=== PATIENT | male | born 1945 | race Caucasian/White ===

== ENCOUNTER 2020-03-13 13:54 | Inpatient (IN) | payer MEDICARE, OTHER, SELFPAY ==
[2020-03-13] VITALS (12 sets, daily range): BP systolic 107–152; BP diastolic 49–90; PULSE 65–91; RESP 12–22; TEMP 35.4–36.8; O2SAT 91–100; BMI 12.9; BMI 13.7
--- NOTE | 2020-03-13 14:13 | XR_ITS ---
PROCEDURE: XR CHEST 2V CLINICAL HISTORY: dizziness COMPARISON: No exams were available for comparison FINDINGS: The cardiomediastinal silhouette and pulmonary vascularity are within normal limits. Changes of COPD. Calcified granuloma right upper lobe. No lobar consolidation or collapse. There is kyphosis of the thoracic spine with mild wedging of L1 T12-T10 which is age indeterminate. There is evidence of old granulomatous disease. IMPRESSION: COPD with multiple wedge compression changes in the thoracic spine Dictated by: Leon Gutiérrez MD 03/13/2020 15:04 Leon Gutiérrez MD in [place] 03/13/2020 15:04
--- NOTE | 2020-03-13 14:28 | HMH.EDDIZZ ---
ED Disposition Clinical Impression: Hyponatremia, Acute UTI Failure to thrive Qualifiers: Failure to thrive age range: in adult Qualified Code(s): R62.7 - Adult failure to thrive Syncope Qualifiers: Syncope type: unspecified Qualified Code(s): R55 - Syncope and collapse Disposition: Admitted As Inpatient Condition on Discharge: [facility] Critical Care Critical Care Time: No Attestation: On 03/13/20, the high probability of a clinically significant, sudden or life threatening deterioration of the following system(s) required my full and direct attention, intervention and personal management. The time I documented below is in addition to time spent performing reported procedures but includes the following listed in this critical care notation. Medical Decision Making - Medical Records Medical records reviewed: Yes: I reviewed the patient's medical records. - Patric Inquiry Pt receiving controlled substance: No Vital Signs: 03/13/20 13:56 03/13/20 15:26 03/13/20 15:51 Temperature 96.0 F L Temperature Source Rectal Pulse Rate [Left Radial] 69 Respiratory Rate 20 Blood Pressure [Orthostatic Lying Left Arm] 152/62 H Blood Pressure [Orthostatic Sitting Left Arm] 133/49 L Blood Pressure [Orthostatic Standing Left Arm] 140/88 Blood Pressure [Right Arm] 107/56 L Blood Pressure Mean [Right Arm] 73 Blood Pressure Source [Right Arm] Automatic Cuff Blood Pressure Position [Right Arm] Sitting 02 Sat by Pulse Oximetry 100 Oxygen Delivery Method Room Air - Lab Data Lab Results 03/13/20 14:51: WBC 5.9, RBC 4.00 L, Hgb 13.0 L, Hct 37.5 L, MCV 93.5, MCH 32.4 H, MCHC 34.6, RDW 14.5, Plt Count 165, MPV 7.3 L, Neut % (Auto) 86.0 H, Lymph % (Auto) 9.0 L, [place] % (Auto) 3.9, Eos % (Auto) 0.6, Baso % (Auto) 0.5, Neut # (Auto) 5.1, Lymph # (Auto) 0.5 L, [place] # (Auto) 0.2, Eos # (Auto) 0.0, Baso # (Auto) 0.0, Total Counted 100, Neutrophils % (Manual) 93 H, Lymphocytes % (Manual) 4 L, Monocytes % (Manual) 3, Platelet Estimate Normal, RBC Morphology Normal 03/13/20 14:51: Sodium 130 L, Potassium 3.2 L, Chloride 89 L, Carbon Dioxide 32 H, Anion Gap 12.2, BUN 13, Creatinine 0.70, Estimated Creat Clear 37, Estimated GFR 110, Est GFR ( Amer) 133, Glucose 118 H, Calcium 9.1, Total Bilirubin 1.8 H, AST 81 H, ALT 22, Alkaline Phosphatase 156 H, Total Protein 7.6, Albumin 4.0, Globulin 3.6 H, Albumin/Globulin Ratio 1.1 03/13/20 14:51: Troponin I < 0.01 03/13/20 16:01: Urine Color [place], Urine Appearance Clear, Urine pH 6.0, Ur Specific [place] 1.025, Urine Protein Trace, Urine Glucose (UA) Negative, Urine Ketones Trace, Urine Blood Negative, Urine Nitrate Positive, Urine Bilirubin Negative, Urine Urobilinogen 1.0, Ur Leukocyte Esterase Negative, Urine RBC 3-5, Urine WBC 3-5, Ur Squamous Epith Cells 3-5, Ur Renal Epithelial Cell 5-10, Urine Bacteria Trace, Hyaline Casts Occasional, Urine Yeast Occasional, Urine Sperm 1+ Result diagrams: 03/13/20 14:51 03/13/20 14:51 Orders (Tests/Meds): ED MEDICATIONS Generic Name Dose Route Start Last Admin Trade Name Freq PRN Reason Stop Dose Admin Acetaminophen 650 mg 03/13/20 16:28 Acetaminophen 325mg Tab PO 04/12/20 16:27 Q4HP PRN As Needed for Fever or Pain Docusate Sodium 100 mg 03/14/20 09:00 Docusate Sodium 100 Mg Capsule PO 04/13/20 08:59 DAILY DEBORA Sodium Chloride 1,000 mls @ 999 mls/hr 03/13/20 16:15 03/13/20 16:06 Sod Chlor 0.9% 1000ml Bag IV 03/13/20 17:15 999 mls/hr .Q1H1M DEBORA Administration Ceftriaxone Sodium 1 gm/ 50 mls @ 100 mls/hr 03/13/20 16:26 Sodium Chloride IV 03/13/20 16:55 ONCE STA Protocol Ondansetron HCl 4 mg 03/13/20 16:28 Ondansetron 4mg/2ml Vial IV 04/12/20 16:27 Q8HP PRN Nausea Pantoprazole Sodium 40 mg 03/14/20 09:00 Pantoprazole 40mg Tablet PO 04/13/20 08:59 DAILY DEBORA Discontinued Medications Generic Name Dose Route Start Last Admin Trade Name F
--- NOTE | 2020-03-13 14:57 | ECG_ITS ---
APPROVED REPORT Exam: Resting ECG HR:71 bpm ECG Measurements Heart Rate 71 AXES OH 182 P 87 QRSd 100 QRS 88 QT 440 T 96 QTc 478 Conclusion Normal sinus rhythm Late r wave progression Abnormal ECG Electronically signed by : Rad Thompson, 03/16/2020 20:36:33
--- NOTE | 2020-03-13 14:57 | ECG_ITS ---
APPROVED REPORT Exam: Resting ECG HR:71 bpm ECG Measurements Heart Rate 71 AXES [place] 182 P 87 QRSd 100 QRS 88 QT 440 T 96 QTc 478 Conclusion Normal sinus rhythm Septal infarct, age undetermined Abnormal ECG Electronically signed by : Rad Thompson, 03/13/2020 21:33:41
[2020-03-13 14:59] LABS: Basophils % 0.5 % (0.1-2.0); Eosinophils % 0.6 % (0.1-12.0); Hematocrit 37.5 % (42.0-52.0); Lymphocytes # 0.5 K/mm3 (0.7-4.5); Mean Corpuscular HGB Conc 34.6 g/dL (31.8-35.4); Mean Corpuscular Hemoglobin 32.4 pg (27.0-31.2); Mean Corpuscular Volume 93.5 fl (80-94); Mean Platelet Volume 7.3 fl (7.4-10.4); Monocytes # 0.2 K/mm3 (0.1-1.0); Monocytes % 3.9 % (1.7-9.3); Neutrophils # 5.1 K/mm3 (1.8-7.8); Platelet Count 165 K/mm3 (142-424); Red Cell Distribution Width 14.5 % (11.5-17.5); White Blood Count 5.9 K/mm3 (4.8-10.8)
[2020-03-13 15:01] LABS: MANUAL DIFFERENTIAL MANUAL DIFFERENTIAL (MANUAL DIFF)
[2020-03-13 15:13] LABS: Alanine Aminotransferase 22 U/L (12-78); Albumin/Globulin Ratio 1.1 (1.1-1.8); Alkaline Phosphatase 156 U/L (38-126); Aspartate Amino Transferase 81 U/L (17-59); Bilirubin,Total 1.8 mg/dl (0.2-1.3); Blood Urea Nitrogen 13 mg/dl (9-20); Calcium 9.1 mg/dl (8.4-10.2); Carbon Dioxide 32 mmol/L (22.0-30.0); Chloride 89 mmol/L (98-107); Creatinine Clearance Estimated 37 mL/min (50-200); Estimated Glomerular Filt Rate 110 ml/min (>60); GFR (African American) 133 ML/MIN (>60); Globulin 3.6 g/dL (1.3-3.2); Glucose 118 mg/dl (74-100); Total Protein,Serum 7.6 g/dl (6.3-8.2)
--- NOTE | 2020-03-13 15:18 | CT_ITS ---
PROCEDURE: CT HEAD/BRAIN WO CON CLINICAL INDICATION: syncope Syncope and dizziness COMPARISON: No exams were available for comparison TECHNIQUE: Axial images obtained. All CT scans at the facility use one or more dose reduction, viz: automated exposure control, ma/kV adjustment per patient size (including targeted exams where dose is matched to indication, i.e. head), or iterative reconstruction technique. FINDINGS: No midline shift, mass effect, intracranial hemorrhage, hydrocephalus, or extra-axial fluid collection is evident. There is generalized atrophy with hypoattenuation of the periventricular white matter consistent with microangiopathic changes. There is a small area of decreased attenuation in the left subinsular region measuring approximately 7 mm. This is nonspecific and may represent a small area lacunar infarction age indeterminate. The calvarium has an unremarkable appearance. No mastoid effusion. There is mild mucosal thickening of the left maxillary and sphenoid sinus. And sphenoid sinus on the left as well as the ethmoid sinuses. IMPRESSION: 1. Small area of decreased attenuation in the subinsular region on the left which could reflect a small lacunar infarction age indeterminate. 2. Mild sinus disease. Dictated by: Leon Gutiérrez MD 03/13/2020 16:01 Leon Gutiérrez MD in [place] 03/13/2020 16:01
[2020-03-13 15:20] LABS: Lymphocytes % 4 % (10-50); Monocytes % 3 % (2-9); Neutrophils % 93 % (42-76); Platelet Estimate Normal; RBC Morphology Normal; Total Cells Counted 100
[2020-03-13 15:23] LABS: Anion Gap 12.2 mEq/L (5-15); Potassium 3.2 mmoL/L (3.5-5.1); Sodium 130 mmol/L (136-145)
[2020-03-13 16:04] LABS: Troponin I < 0.01 ng/ml (0.00-0.034)
[2020-03-13 16:09] LABS: Microscopic, Urine URINE MICROSCOPIC (MICROSCOPIC)
[2020-03-13 16:10] LABS: Appearance,Urine CLEAR (Clear); Blood, Urine Negative (Negative); Color,Urine ORANGE (Yellow); Glucose,Urine (UA) Negative (Negative); Ketones,Urine TRACE (Negative); Leukocyte Esterase,Urine Negative (Negative); Nitrate,Urine POSITIVE (Negative); Protein,Urine TRACE (Negative); Specific Gravity, Urine 1.025 (1.005-1.030)
[2020-03-13 16:21] LABS: Bilirubin,Urine Negative (Negative)
[2020-03-13 16:22] LABS: Bacteria,Urine Trace /lpf; Hyaline Casts,Urine Occasional #/lpf (0); Sperm,Urine 1+ /lpf; Yeast,Urine Occasional /lpf
--- NOTE | 2020-03-13 16:30 | CT_ITS ---
PROCEDURE: CT ABDOMEN PELVIS W CON CLINICAL INDICATION: elevated bili and AST Elevated bilirubin COMPARISON: No exams were available for comparison TECHNIQUE: IV Contrast: 75ML Isovue 370 Oral Contrast None Axial images obtained with sagittal and coronal reformats. All CT scans at the facility use one or more dose reduction, viz: automated exposure control, ma/kV adjustment per patient size (including targeted exams where dose is matched to indication, i.e. head), or iterative reconstruction technique. FINDINGS: LOWER THORAX: No acute finding ABDOMEN & PELVIS: The liver, spleen, adrenal glands, have an unremarkable appearance. There is pancreatic atrophy. No renal or ureteral calculi. Hyperdensity noted in the posterior aspect of the gallbladder may be related to small layering stones and/or sludge. No intestinal obstruction or free air. The appendix is not clearly delineated. Multiple unopacified bowel loops in the abdomen or pelvis which could obscure or mimic pathology. If symptoms persist, consider repeat exam with IV and oral contrast.. Probable diverticulosis of the sigmoid colon but difficult to confirm secondary to the unopacified bowel and patient's paucity of peritoneal fat. No obvious diverticulitis. There is heavy atherosclerotic calcification of the aorta and iliac vessels and proximal left renal artery. Degenerative changes are present in the lumbar spine with wedging superiorly L4 and wedging inferiorly of L1 which appear old. IMPRESSION: 1. Layering posterior hyperdensity within the gallbladder may be due to small stones and/or sludge. 2. Multiple unopacified bowel loops in the abdomen or pelvis which could obscure or mimic pathology. If symptoms persist, consider repeat exam with IV and oral contrast.. Suspected diverticulosis without diverticulitis Dictated by: Leon Gutiérrez MD 03/14/2020 06:10 Loen Gutiérrez MD in [place] 03/14/2020 06:10
--- NOTE | 2020-03-13 16:34 | PC.NURSE ---
Per EMS pt lives at home by himself at this time. His is in a hospital in [facility] ([facility]) for the last 3 months.
[2020-03-13 16:54] LABS: Coronavirus 19 IgG Antibody Negative (Negative); Coronavirus 19 IgM Antibody Negative (Negative)
--- NOTE | 2020-03-13 17:40 | PC.NURSE ---
patent is very hard of hearing. unable to obtain some of admission history
--- NOTE | 2020-03-13 18:11 | PC.NURSE ---
patient is a new admit from the [facility]. VOICES NO PAIN. VERY HARD OF HEARING. WISHES TO BE DNR- PAPER SIGNED AND BRACELET APPLIED. SCATTERED BRUISING NOTED TO PATIENT BILAT ARMS. PULSES 2+ AND NO EDEMA. NO DISTRESS NOTED
--- NOTE | 2020-03-13 18:15 | HMH.HP ---
*Admission Date: 03/13/20 *Chief complaint: syncope episode *History of present illness: This is a 74-year-old male with no significant past medical history who presents to the emergency department for an episode of syncope at the grocery store today. Patient was giving the money to the otc clerk when he fell into the plastic shield. Patient is hard of hearing so report is primarily from EMS and the grocery store where he shops. They state he is in there frequently and they have noticed a general decline over the last several years. Patient does not go to the doctor and takes no medications regularly. Fingerstick was in the 120s. Patient denies any associated chest pain, shortness of breath or recent illnesses. He did fill a narcotic medication on February 062019. He states that he just got lightheaded earlier today. Asymptomatic currently. No pain. Above note per emergency department Significant electrolyte disturbances, significant weakness noted in the ER, admitted for social work, PT/OT evaluation and IV hydration. [facility] History I have reviewed the patient's past medical history: Yes Medical History: Denies:: Cancer, Diabetes Mellitus Type 1, Diabetes Mellitus Type 2, Internal Pacemaker, MRSA *Have you ever received a pneumonia vaccine?: No *Have you received a flu vaccine this season?: Yes Other Surgeries: No: Pacemaker Amputation: No Fractures: No - *Social History Last grade of school completed: GED Smoking Status: Current every day smoker Tobacco Type: cigarettes # Packs/Day (cigarettes): 1 Alcohol Intake: never *Occupational Status:: retired Housing: house Household Members: spouse *Travel in the last 8 weeks: None Family Hx:: Unable to obtain Review of Systems - Review of Systems Review of systems:: pertinent systems reviewed and negative unless documented below Patient feels fine except I am weak very hard of hearing Meds Home Medications Medication Instructions Recorded Confirmed Type Naproxen Sodium [Aleve 220mg Cap] 220 mg PO BID 03/13/20 03/13/20 History Allergies Allergy/AdvReac Type Severity Reaction Status Date / Time No Known Allergies Allergy Verified 03/13/20 14:13 Exam Vital signs and Labs for Last 24 Hours: Temp Pulse Resp BP Pulse Ox 98.1 F 65 18 133/62 100 03/13/20 17:14 03/13/20 17:14 03/13/20 17:14 03/13/20 17:14 03/13/20 16:30 Laboratory Results - last 24 hr 03/13/20 14:51: WBC 5.9, RBC 4.00 L, Hgb 13.0 L, Hct 37.5 L, MCV 93.5, MCH 32.4 H, MCHC 34.6, RDW 14.5, Plt Count 165, MPV 7.3 L, Neut % (Auto) 86.0 H, Lymph % (Auto) 9.0 L, [place] % (Auto) 3.9, Eos % (Auto) 0.6, Baso % (Auto) 0.5, Neut # (Auto) 5.1, Lymph # (Auto) 0.5 L, [place] # (Auto) 0.2, Eos # (Auto) 0.0, Baso # (Auto) 0.0, Total Counted 100, Neutrophils % (Manual) 93 H, Lymphocytes % (Manual) 4 L, Monocytes % (Manual) 3, Platelet Estimate Normal, RBC Morphology Normal 03/13/20 14:51: Sodium 130 L, Potassium 3.2 L, Chloride 89 L, Carbon Dioxide 32 H, Anion Gap 12.2, BUN 13, Creatinine 0.70, Estimated Creat Clear 37, Estimated GFR 110, Est GFR ( Amer) 133, Glucose 118 H, Calcium 9.1, Total Bilirubin 1.8 H, AST 81 H, ALT 22, Alkaline Phosphatase 156 H, Total Protein 7.6, Albumin 4.0, Globulin 3.6 H, Albumin/Globulin Ratio 1.1 03/13/20 14:51: Troponin I < 0.01 03/13/20 14:51: SARS-CoV-2 IgG Ab (Rapid) Negative, SARS-CoV-2 IgM Ab (Rapid) Negative 03/13/20 16:01: Urine Color [place], Urine Appearance Clear, Urine pH 6.0, Ur Specific [place] 1.025, Urine Protein Trace, Urine Glucose (UA) Negative, Urine Ketones Trace, Urine Blood Negative, Urine Nitrate Positive, Urine Bilirubin Negative, Urine Urobilinogen 1.0, Ur Leukocyte Esterase Negative, Urine RBC 3-5, Urine WBC 3-5, Ur Squamous Epith Cells 3-5, Ur Renal Epithelial Cell 5-10, Urine Bacteria Trace, Hyaline Casts Occasional, Urine Yeast Occasional, Urine Sperm 1+ I & O for Last 24 hours: Intake & Output 03/11/20 03/12/20 03/13/20 03/14/20 11:59
[2020-03-13 18:37] LABS: Troponin I 0.01 ng/ml (0.00-0.034)
[2020-03-13 19:03] LABS: Barbiturates Screen,Urine Negative ng/ml (<200)
[2020-03-13 19:04] LABS: Amphetamine/Metha Screen,Urine Negative ng/ml (<1000); Benzodiazepines Screen,Urine Negative ng/ml (<200)
[2020-03-13 19:05] LABS: Cannabinoid Screen,Urine Negative ng/ml (<50)
[2020-03-13 19:06] LABS: Cocaine Screen,Urine Negative ng/ml (<300); Methadone Screen,Urine Negative ng/ml (<300)
[2020-03-13 19:07] LABS: Opiate Screen,Urine Negative ng/ml (<300)
[2020-03-13 19:08] LABS: Phencyclidine Screen,Urine Negative ng/ml (<25)
--- NOTE | 2020-03-13 21:58 | PC.NURSE ---
2100 COURTESY ROUND PT ASLEEP AT THIS TIME . URINAL AND TRASH EMPTIED. NO OTHER NEEDS AT THIS TIME.
[2020-03-13 22:02] LABS: Troponin I 0.21 ng/ml (0.00-0.034)
[2020-03-14] VITALS (7 sets, daily range): BP systolic 103–140; BP diastolic 46–67; PULSE 68–90; RESP 14–18; TEMP 36.3–36.9; O2SAT 94–99; BMI 13.3; BMI 13.4
--- NOTE | 2020-03-14 04:13 | PC.NURSE ---
PT. HAS NOT C/O PAIN, N/V/D, SOA OR DIZZINESS. PT. DENIES COUGH; DIMINISHED LUNG SOUNDS T/O BILAT. PT. CURRENTLY RESTING IN BED WITH EYES CLOSED.
[2020-03-14 06:58] LABS: Basophils % 1.1 % (0.1-2.0); Eosinophils % 0.7 % (0.1-12.0); Hematocrit 30.1 % (42.0-52.0); Lymphocytes # 0.4 K/mm3 (0.7-4.5); Lymphocytes % 12.7 % (10-50); Mean Corpuscular HGB Conc 35.2 g/dL (31.8-35.4); Mean Corpuscular Hemoglobin 32.8 pg (27.0-31.2); Mean Corpuscular Volume 93.1 fl (80-94); Mean Platelet Volume 8.1 fl (7.4-10.4); Monocytes # 0.2 K/mm3 (0.1-1.0); Monocytes % 5.9 % (1.7-9.3); Neutrophils # 2.7 K/mm3 (1.8-7.8); Neutrophils % 79.6 % (37.0-80.0); Platelet Count 125 K/mm3 (142-424); Red Blood Count 3.23 M/mm3 (4.60-6.20); Red Cell Distribution Width 14.5 % (11.5-17.5); White Blood Count 3.4 K/mm3 (4.8-10.8)
--- NOTE | 2020-03-14 07:02 | HMH.ACPN2 ---
Internal Medicine - PN: Subj *Date: 03/14/20 *Time: 13:05 Interval history: Patient did well overnight. Denies any chest pain, shortness of breath, nausea, vomiting. Overall states he is feeling better. Reports that he was feeling dizzy at home and that is why he came to the emergency room. Is remained afebrile and hemodynamically stable. Of note, his serial troponins showed an elevation on the third sample. EKG remained stable with no ST abnormalities. Patient asymptomatic. Speech somewhat difficult to hear or understand. On further questioning, he states that he has had worsening ability to speak clearly over the past several months as a noted right sided neck mass has appeared. Extensive smoking history with greater than [id number] history. Exam Vital signs and Labs for Last 24 Hours: Temp Pulse Resp BP Pulse Ox 97.4 F L 72 14 136/67 98 03/14/20 05:26 03/14/20 05:26 03/14/20 05:26 03/14/20 05:26 03/14/20 05:26 Laboratory Results - last 24 hr 03/13/20 14:51: WBC 5.9, RBC 4.00 L, Hgb 13.0 L, Hct 37.5 L, MCV 93.5, MCH 32.4 H, MCHC 34.6, RDW 14.5, Plt Count 165, MPV 7.3 L, Neut % (Auto) 86.0 H, Lymph % (Auto) 9.0 L, [place] % (Auto) 3.9, Eos % (Auto) 0.6, Baso % (Auto) 0.5, Neut # (Auto) 5.1, Lymph # (Auto) 0.5 L, [place] # (Auto) 0.2, Eos # (Auto) 0.0, Baso # (Auto) 0.0, Total Counted 100, Neutrophils % (Manual) 93 H, Lymphocytes % (Manual) 4 L, Monocytes % (Manual) 3, Platelet Estimate Normal, RBC Morphology Normal 03/13/20 14:51: Sodium 130 L, Potassium 3.2 L, Chloride 89 L, Carbon Dioxide 32 H, Anion Gap 12.2, BUN 13, Creatinine 0.70, Estimated Creat Clear 37, Estimated GFR 110, Est GFR ( Amer) 133, Glucose 118 H, Calcium 9.1, Total Bilirubin 1.8 H, AST 81 H, ALT 22, Alkaline Phosphatase 156 H, Total Protein 7.6, Albumin 4.0, Globulin 3.6 H, Albumin/Globulin Ratio 1.1 03/13/20 14:51: Troponin I < 0.01 03/13/20 14:51: SARS-CoV-2 IgG Ab (Rapid) Negative, SARS-CoV-2 IgM Ab (Rapid) Negative 03/13/20 16:01: Urine Color [place], Urine Appearance Clear, Urine pH 6.0, Ur Specific [place] 1.025, Urine Protein Trace, Urine Glucose (UA) Negative, Urine Ketones Trace, Urine Blood Negative, Urine Nitrate Positive, Urine Bilirubin Negative, Urine Urobilinogen 1.0, Ur Leukocyte Esterase Negative, Urine RBC 3-5, Urine WBC 3-5, Ur Squamous Epith Cells 3-5, Ur Renal Epithelial Cell 5-10, Urine Bacteria Trace, Hyaline Casts Occasional, Urine Yeast Occasional, Urine Sperm 1+ 03/13/20 16:01: Urine Opiates Screen Negative, Urine Methadone Screen Negative, Ur Barbituates Screen Negative, Ur Phencyclidine Scrn Negative, Ur Amphetamines Screen Negative, U Benzodiazepines Scrn Negative, Urine Cocaine Screen Negative, U Marijuana (THC) Screen Negative 03/13/20 18:05: Troponin I 0.01 03/13/20 21:35: Troponin I 0.21 H I & O for Last 24 hours: Intake & Output 03/11/20 03/12/20 03/13/20 03/14/20 23:59 23:59 23:59 23:59 Intake Total 1000 / 1240 240 / 240 Output Total 200 / 200 200 / 200 Balance 800 / 1040 40 / 40 Weight 38.697 kg 37.677 kg - Constitutional cachectic, chronically ill appearing, cooperative Comments: Appears older than stated age - *Routine HEENT Exam Head: Present: other (Bitemporal wasting) Eye: Present: EOMI, PERRL ENT: Present: mucous membranes moist Comments: Right side of tongue enlarged, speech garbled - *Routine Neck Exam Present: supple, lymphadenopathy, trachea midline Comments: mass in right submandibular region, non-tender - *Routine Respiratory Exam Present: CTA bilaterally - *Routine Cardiovascular Exam Present: RRR - *Routine Abdominal Exam Present: soft, normoactive bowel sounds. Absent: tenderness Comments: scaphoid - *Routine Extremities Exam Absent: cyanosis, clubbing, edema Comments: sarcopenia - *Routine Skin Exam Present: warm. Absent: rash - *Routine Neurological Exam Present: alert, oriented X3 Assessment and Plan (1) Acute UTI Status: Acute
[2020-03-14 07:04] LABS: Chloride 96 mmol/L (98-107); Sodium 132 mmol/L (136-145)
[2020-03-14 07:06] LABS: Alanine Aminotransferase 11 U/L (12-78); Aspartate Amino Transferase 49 U/L (17-59); Blood Urea Nitrogen 9 mg/dl (9-20); Creatinine Clearance Estimated 35 mL/min (50-200); Estimated Glomerular Filt Rate 132 ml/min (>60); GFR (African American) 159 ML/MIN (>60)
[2020-03-14 07:07] LABS: Albumin Level 3.1 g/dl (3.5-5.0); Albumin/Globulin Ratio 1.1 (1.1-1.8); Alkaline Phosphatase 66 U/L (38-126); Calcium 8.3 mg/dl (8.4-10.2); Carbon Dioxide 31 mmol/L (22.0-30.0); Globulin 2.9 g/dL (1.3-3.2); Glucose 51 mg/dl (74-100); Magnesium 1.6 mg/dl (1.6-2.3); Phosphorous 2.9 mg/dl (2.5-4.5)
--- NOTE | 2020-03-14 07:24 | P.CONPHA_ITS ---
[facility] Pharmacy VTE Monitoring - Patient Demographics Admission date: 03/13/20 Report Date: 03/14/20 Time: 07:24 Allergies/Adverse Reactions: Patient Allergies No Known Allergies Allergy (Verified 03/13/20 14:13) Height: 1.68 m Weight: 37.677 kg Patient Problems: Current Active Problems Failure to thrive (Acute) Hyponatremia (Acute) Syncope (Acute) Acute UTI (Acute) - VTE Risk Labs: VTE Related Lab Results Hgb 13.0 g/dL (14.1-18.0) L 03/13/20 14:51 Hct 30.1 % (42.0-52.0) L 03/14/20 06:49 Plt Count 125 K/mm3 (142-424) L 03/14/20 06:49 BUN 9 mg/dl (9-20) D 03/14/20 06:49 Creatinine 0.60 mg/dl (0.66-1.25) L 03/14/20 06:49 Estimated Creat Clear 35 mL/min (50-200) 03/14/20 06:49 Was VTE Risk Assessment Performed: Yes VTE Score: 1 VTE Risk Level: Very Low Risk - Prophylaxis VTE Prophylaxis Ordered?: Yes Types of VTE Prophylaxis: TEDS Knee High Location of Applied Device: Bilateral Lower Extremeties
[2020-03-14 08:37] LABS: Hemoglobin 10.6 g/dL (14.1-18.0)
--- NOTE | 2020-03-14 09:06 | CT_ITS ---
PROCEDURE: CT SOFT TISSUE NECK WO/W CON CLINICAL HISTORY: mass in right neck COMPARISON: No exams were available for comparison TECHNIQUE: Oral Contrast: None IV Contrast: 75 mL Optiray 370 Axial images obtained with sagittal and coronal reformats. All CT scans at the facility use one or more dose reduction, viz: automated exposure control, ma/kV adjustment per patient size (including targeted exams where dose is matched to indication, i.e. head), or iterative reconstruction technique. FINDINGS: There is mild diffuse subcutaneous edema throughout the neck on both sides. Motion artifact obscures fine detail. Patient's lack of body fat also limits the exam. Lung this along with motion artifact greatly limits the study. There is mild diffuse increased density which has an infiltrative appearance in the right parapharyngeal region. The right submandibular gland is not well-defined. The uvula is somewhat deviated toward the right. The epiglottis has an unremarkable appearance. The no dominant adenopathy is identified. No abnormal fluid collections. Asymmetric increased density is present along the left side of the tongue. Correlation with physical exam is needed. A BB is placed at the area of palpable concern. No discrete nodule is evident at this region. There is diffuse subcutaneous swelling which is greater on the right side of the neck. No abscess is evident at this area. There is diffuse atheromatous calcification involving the carotid arteries. There is high-grade stenosis of the ostium of the right internal carotid artery. 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 IMPRESSION: Study is very limited secondary to patient's lack of body fat and motion artifact on the post enhanced images. There is mild diffuse soft tissue swelling of the neck which is greater on the right and may be related to cellulitis. The normal fat plane in this area extending to the pterygoid region. An infiltrative mass is a consideration. Please correlate with physical exam. There is also increased soft tissue density along the base of the tongue on the left which needs correlation with physical exam. Dictated by: Leon Gutiérrez MD 03/14/2020 14:35 Leon Gutiérrez MD in [place] 03/14/2020 14:35
--- NOTE | 2020-03-14 10:17 | ECG_ITS ---
APPROVED REPORT Exam: Resting ECG HR:79 bpm ECG Measurements Heart Rate 79 AXES ND 192 P 84 QRSd 92 QRS 70 QT 402 T 22 QTc 460 Conclusion Normal sinus rhythm Normal ECG Electronically signed by : Rad Thompson, 03/16/2020 20:33:37
--- NOTE | 2020-03-14 10:50 | HMH.OTEV ---
OT Inpatient Evaluation Rehab OT IP Evaluation Start: 03/13/20 18:18 Freq: ONCE Status: Complete Protocol: Document 03/14/20 09:52 CANDIDOCARLENE (Rec: 03/14/20 10:01 YARIELBERNADETTE [id number]) Rehab OT IP Assessment Subjective History 74 year old male who lives alone in 1 story home with ramp to enter. Patient admitted to [facility] on 03/13/20 after syncope at grocery store . Patient was giving money to the voucher clerk and fell into the plastic shield. Discharge dx: Acute UTI, Failure to thrive, hyponatremia, syncope, severe protein calorie malnutrition, hypomagnetesmia and hypokalemia. Nursing consulted with OT re: Patient being non compliant with medication and has already pulled out his IV . Subjective I want to get out of here. Objective Patient Orientation Person,Place,Time,Name Upper Extremity Gross ROM WNL Bed Mobility bed mobility-scooting,bed mobility - supine/sit,bed mobility - rolling Assist Level Independent Transfer Training Sit/Stand Transfer,Sit/Stand/ Pivot Transfer Assist Level Independent Chair Transfer Ability Independent Chair Transfer Technique Stand Step Pivot Chair Transfer Assistive Devices Straight Cane Feeding Ability Independent Lower Body Dressing Ability Independent Rehab OT IP prob,goals,plan Problems Date of Evaluation: 03/14/20 Other OT problems Non compliant with medication/ pulling out IV. Rehab Potential Rehab Potential Innapropriate for Skilled Therapy Equipment Needs Assistive Devices Straight Cane Discharge Plan OT Discharge Plan SS verbalize Patient to be d/c to placement 2* medical supervision. Eval Complexity Eval Charge Codes 61301 - Low Complexity G Codes G -code Required No PHYSICIAN CERTIFICATION: I certify the specified therapy services for Jose Guadalupe Kovacs are required, authorized, and reviewed every 30 days.
--- NOTE | 2020-03-14 11:30 | HMH.PTEV ---
Physical Therapy Evaluation Rehab PT IP Evaluation Start: 03/13/20 18:18 Freq: ONCE Status: Active Protocol: Document 03/14/20 11:27 PHOMILDRED (Rec: 03/14/20 11:30 PHORNE [id number]) Subjective/History History History 74 yowm adm to [facility] with generalized weakness after feeling lightheaded while buying groceries. He reports he lives alone without steps to enter the home and uses a cane for ambulation. Subjective Subjective Pt with no c/o this am. Rehab PT IP Eval Objective Appearance Patient Behavior Appropriate Patient Orientation Person,Place,Time Difficulty following instructions none Speech Pattern Clear Ambulation Patient Able to Ambulate Yes Ambulation Observation IP General Gait Pattern Observation Shuffling Step Ambulation Distance (feet) 50 Ambulation Assistive Device Straight Cane Ambulation Ability Supervision/Stand by Balance Ability to Arise Able, uses arms to help Sitting Balance Steady, safe Standing Balance Steady, wide stance Dynamic Sitting Balance Ability Good Dynamic Standing Balance Ability Fair Transfers Bed Transfer Ability Supervision/Stand by Chair Transfer Ability Supervision/Stand by Sit to Stand Bed Transfer Ability Supervision/Stand by Sit to Stand Chair Transfer Ability Supervision/Stand by ROM All Extremities PT ROM Status WFL MMT All Extremities PT MMT WFL Rehab PT IP prob,goals,plan Problems Date of Evaluation: 03/14/20 Discharge Plan PT Discharge Plan Pt appears to be at baseline for all transfers and mobility at this time. No current inpatient therapy needs. G -code Required No Eval Complexity Eval Charge Codes 84768 - Moderate Complexity PHYSICIAN CERTIFICATION: I certify the specified therapy services for Jose Guadalupe Kovacs are required, authorized, and reviewed every 30 days.
--- NOTE | 2020-03-14 13:36 | PC.NURSE ---
Pt is alert and oriented and able to make needs known. Pt did pull IV out of r arm this am during his magnesium infusion, did make Dr. Pedraza aware of this and question if pt will required any more abx for documented uti. Awaiting response at this time. NAD. Awaiting ct results, as well as troponin lab. VSS. New IV saline locked in LFA. Remains safe at this time. Has had pt/ot evals. Bed safety alarm is on.
--- NOTE | 2020-03-14 14:03 | DIET.NUTRFU ---
Nutritional Assessment, IP completed. Pt with severe malnutrition, energy/protein supplements added to diet order qid as well as high calorie additional items of pt's preferences tid and by request. Encouraged pt to request additional snacks/supplements at any time. Observed pt at lunch with swallowing difficulty, he states he has had increasing issues. Diet altered to soft and speech has been consulted. Will follow their recommendations along with further diagnostic findings and modify diet as indicated to meet nutrition needs. Pt counseled/educated on malnutrition, protein/energy needs, and getting adequate intakes on soft diet.
[2020-03-14 14:26] LABS: Troponin I 0.19 ng/ml (0.00-0.034)
--- NOTE | 2020-03-14 15:13 | PC.NURSE ---
Dr. Pedraza stated that he was going to place order for ABT.
--- NOTE | 2020-03-14 15:36 | HMH.SLDYSPHA ---
Speech & Language Evaluation Speech/Language Dysphagia Evaluation Start: 03/14/20 15:29 Freq: ONCE Status: Active Protocol: Document 03/14/20 15:29 ASHU (Rec: 03/14/20 15:36 ASHU [id number]) Dysphagia Assess/Goals/Plan Assessment Date of Evaluation: 03/14/20 Evaluation Type Initial Certification Assessment/Problems Dysphagia Does Patient Qualify for Service No Qualify/Failure Comment Patient is on least restrictive diet at this time. No signs of dysphagia noted. Recommendations PHYSICIAN CERTIFICATION: The specified therapy services are required, authorized, and reviewed every 30 days. Diet Recommendations Normal Liquid Type Recommendations Normal/Thin Plan Pt/Guardian verbally ack understanding Yes: RN and CM notified of dx/prognosis/goals G -code Required No Speech & Language HPI Hearing Hearing Ability Hard of Hearing General Information General Current Food Consistancy Regular,Chopped Meats,Thin Liquids Dentition Edentulous Patient Orientation Person,Place Ability to Follow Directions Good Dysphagia:Food Presentation Evaluation Food Type Pureed,Mechanical Soft,Regular ,Liquid,Pudding Normal/Thin Liquid Response Clears throat Dysphagia Evaluation Summary Mr. Kovacs was given the following consistencies: thins via open cup only (patient refused spoon and straw), pudding, pureed, mechanical soft, and regular. Mr. Kovacs did exhibit throat clearing with initial trial of thins but no other trials. No other signs of dysphagia noted. Due to lack of dentition, it is recommended that Mr. Kovacs be placed on mechanical soft diet with thin liquids. Stroke Dysphagia Assessment PHYSICIAN CERTIFICATION: I certify the specified therapy services for Jose Guadalupe Kovacs are required, authorized, and reviewed every 30 days.
--- NOTE | 2020-03-14 17:22 | PC.NURSE ---
Pt is refusing supper at this time. No acute changes. Will cont to mx.
[2020-03-15] VITALS (7 sets, daily range): BP systolic 100–146; BP diastolic 46–60; PULSE 60–90; RESP 14–17; TEMP 36.6–36.9; O2SAT 94–100; BMI 13.6
--- NOTE | 2020-03-15 03:57 | PC.NURSE ---
Pt is A&Ox4. Pt has slept majority of the night. Expiratory rhonchi heard t/o all lung de la garza per auscultation. Pt did get aggressive and uncooperative at the beginning of shift with nursing staff. While this nurse was performing pt's head to toe assessment pt began throwing the covers and yelling just leave me alone, dammit. When giving pt his 2100 med, pt refused to take PO coreg and told this nurse and other members of nursing staff to get out of his room. During rounds pt has been asleep and has turned himself independently t/o the night. Pt continues to be on RA. 20g PIV in LFA remains patent and is saline locked. No other acute changes or complaints at this time, will continue to monitor.
[2020-03-15 07:17] LABS: Basophils % 1.1 % (0.1-2.0); Eosinophils % 0.8 % (0.1-12.0); Hematocrit 34.5 % (42.0-52.0); Lymphocytes # 0.5 K/mm3 (0.7-4.5); Lymphocytes % 15.1 % (10-50); Mean Corpuscular HGB Conc 34.8 g/dL (31.8-35.4); Mean Corpuscular Hemoglobin 32.3 pg (27.0-31.2); Mean Platelet Volume 7.7 fl (7.4-10.4); Monocytes # 0.2 K/mm3 (0.1-1.0); Monocytes % 7.1 % (1.7-9.3); Neutrophils # 2.6 K/mm3 (1.8-7.8); Platelet Count 142 K/mm3 (142-424); Red Blood Count 3.72 M/mm3 (4.60-6.20); Red Cell Distribution Width 14.7 % (11.5-17.5); White Blood Count 3.4 K/mm3 (4.8-10.8)
[2020-03-15 07:25] LABS: Chloride 91 mmol/L (98-107); Sodium 130 mmol/L (136-145)
[2020-03-15 07:28] LABS: Alanine Aminotransferase 13 U/L (12-78); Albumin Level 3.2 g/dl (3.5-5.0); Alkaline Phosphatase 71 U/L (38-126); Anion Gap 6.7 mEq/L (5-15); Aspartate Amino Transferase 55 U/L (17-59); Bilirubin,Total 1.2 mg/dl (0.2-1.3); Blood Urea Nitrogen 6 mg/dl (9-20); Calcium 8.5 mg/dl (8.4-10.2); Carbon Dioxide 35 mmol/L (22.0-30.0); Creatinine Clearance Estimated 35 mL/min (50-200); Estimated Glomerular Filt Rate 163 ml/min (>60); GFR (African American) 197 ML/MIN (>60); Globulin 3.3 g/dL (1.3-3.2); Glucose 55 mg/dl (74-100); Phosphorous 2.5 mg/dl (2.5-4.5); Total Protein,Serum 6.5 g/dl (6.3-8.2)
[2020-03-15 07:29] LABS: Magnesium 1.6 mg/dl (1.6-2.3)
[2020-03-15 07:31] LABS: Potassium 2.7 mmoL/L (3.5-5.1)
--- NOTE | 2020-03-15 08:09 | HMH.ACPN2 ---
Internal Medicine - PN: Subj *Date: 03/15/20 *Time: 08:09 Interval history: Patient this morning is somewhat agitated, has pulled out his IV and wishes to go home, states that he can take care of himself and that he can walk home to [place], and when I told him that it was 25 miles to his home he stated that he could take a nap on the side of the road. He also notes that he has been told before he has had neck cancer by his physician, Dr. Lazo, and notes that he has been told this for the past 3 months. Exam Vital signs and Labs for Last 24 Hours: Temp Pulse Resp BP Pulse Ox 97.9 F 80 17 117/60 94 L 03/15/20 08:00 03/15/20 08:00 03/15/20 08:00 03/15/20 08:00 03/15/20 08:00 Laboratory Results - last 24 hr 03/14/20 06:49: Hgb 10.6 L D 03/14/20 13:35: Troponin I 0.19 H 03/15/20 06:38: WBC 3.4 L, RBC 3.72 L, Hgb 12.0 L D, Hct 34.5 L, MCV 93.0, MCH 32.3 H, MCHC 34.8, RDW 14.7, Plt Count 142, MPV 7.7, Neut % (Auto) 76.0, Lymph % (Auto) 15.1, [place]rent[place] % (Auto) 7.1, Eos % (Auto) 0.8, Baso % (Auto) 1.1, Neut # (Auto) 2.6, Lymph # (Auto) 0.5 L, Prentiss # (Auto) 0.2, Eos # (Auto) 0.0, Baso # (Auto) 0.0 03/15/20 06:38: Sodium 130 L, Potassium 2.7 L*, Chloride 91 L, Carbon Dioxide 35 H, Anion Gap 6.7, BUN 6 L D, Creatinine 0.50 L, Estimated Creat Clear 35, Estimated GFR 163, Est GFR ( Amer) 197 D, Glucose 55 L, Calcium 8.5, Phosphorus 2.5, Magnesium 1.6, Total Bilirubin 1.2, AST 55, ALT 13, Alkaline Phosphatase 71, Total Protein 6.5, Albumin 3.2 L, Globulin 3.3 H, Albumin/Globulin Ratio 1.0 L I & O for Last 24 hours: Intake & Output 03/12/20 03/13/20 03/14/20 03/15/20 11:59 11:59 11:59 11:59 Intake Total 1480 / 1480 1200 / 1200 Output Total 400 / 400 750 / 750 Balance 1080 / 1080 450 / 450 Weight 83 lb 1 oz 85 lb 4 oz Narrative: Patient is talkative, oriented x2, and very intent on being discharged today. Head neck exam remains unchanged. Lungs have good air movement, heart rate regular. Abdomen soft, scaphoid, significant muscle tissue atrophy noted. Neurologic exam nonfocal. No significant rash. Assessment and Plan (1) Acute UTI Status: Acute Category: Medical Code(s): N39.0 - Urinary tract infection, site not specified (2) Failure to thrive Status: Acute Qualifiers: Failure to thrive age range: in adult Qualified Code(s): R62.7 - Adult failure to thrive Category: Medical (3) Hyponatremia Status: Acute Category: Medical Code(s): E87.1 - Hypo-osmolality and hyponatremia (4) Syncope Status: Acute Qualifiers: Syncope type: unspecified Qualified Code(s): R55 - Syncope and collapse Category: Medical Code(s): R55 - Syncope and collapse (5) Severe protein-calorie malnutrition Status: Acute Category: Medical Code(s): E43 - Unspecified severe protein-calorie malnutrition (6) Hypomagnesemia Status: Acute Category: Medical Code(s): E83.42 - Hypomagnesemia (7) Hypokalemia Status: Acute Category: Medical Code(s): E87.6 - Hypokalemia (8) Mass of right side of neck Status: Acute Category: Medical Code(s): R22.1 - Localized swelling, mass and lump, neck (9) Dysarthria Status: Acute Category: Medical Code(s): R47.1 - Dysarthria and anarthria (10) NSTEMI (non-ST elevated myocardial infarction) Status: Acute Category: Medical Code(s): I21.4 - Non-ST elevation (NSTEMI) myocardial infarction - Assessment and plan all Dx Assessment and Plan for all problems:: Given patient's agitation we will leave intravenous access out, transition antibiotics to p.o., and continue feeding. Ativan for anxiety/agitation. I have strongly encouraged patient to stay in the hospital, we will try to get records from Dr. Lazo's office given the patient's knowledge of the right neck mass and his diagnosis of cancer, we will see if this is biopsy-proven. Replace potassium orally today. Follow electrolytes tomorro
--- NOTE | 2020-03-15 19:34 | PC.NURSE ---
Alert and oriented and able to make needs known. Per Dr. Thompson, tele can be d/cd. Pt has rested this shit. Dr. Thompson stated pt didn't have to have iv, did notify Dr. Thompson this am of critical k. CB in reach. POA plans to visit tomorrow and bring paper work for advance directives.
--- NOTE | 2020-03-16 03:58 | PC.NURSE ---
Pt has slept intermittently since 99. Lung sounds clear. Denies soa/pain at this time. UOP adequate since 99.
[2020-03-16 04:00] VITALS: BP 104/46; PULSE 69; RESP 18; TEMP 36.7; O2SAT 95
[2020-03-16 05:05] VITALS: BMI 13.8
[2020-03-16 07:01] LABS: Chloride 94 mmol/L (98-107); Sodium 132 mmol/L (136-145)
[2020-03-16 07:04] LABS: Anion Gap 7.9 mEq/L (5-15); Blood Urea Nitrogen 10 mg/dl (9-20); Carbon Dioxide 33 mmol/L (22.0-30.0); Creatinine Clearance Estimated 36 mL/min (50-200); Estimated Glomerular Filt Rate 163 ml/min (>60); GFR (African American) 197 ML/MIN (>60)
[2020-03-16 07:05] LABS: Calcium 8.4 mg/dl (8.4-10.2)
[2020-03-16 07:08] LABS: Glucose 69 mg/dl (74-100); Potassium 2.9 mmoL/L (3.5-5.1)
--- NOTE | 2020-03-16 07:51 | PC.NURSE ---
REQUESTED TO SPEAK TO MD CASSIYD IN ER REGARDING PT CRITICAL K+ OF 2.9, ANTOINETTE RN IN ER STATED THAT SHE WOULD TAKE CALL FOR MD AND REPORT CRITICAL LAB VALUE. WILL CONTINUE TO MONITOR PT.
[2020-03-16 07:59] VITALS: BP 109/61; PULSE 78; RESP 17; TEMP 36.7; O2SAT 98
--- NOTE | 2020-03-16 08:00 | PC.NURSE ---
notified Dr. Redd of critical potassium on pt that was reported per MARIANNE Lawrence on second floor.
--- NOTE | 2020-03-16 08:16 | HMH.ACPN2 ---
Internal Medicine - PN: Subj *Date: 03/16/20 *Time: 08:16 Interval history: Patient is more pleasant today, does not mention trying to walk home as he did yesterday. Apparently some family members were in yesterday evening visiting with patient. Still awaiting records from primary physician and [facility] regarding previous ENT cancer work-up. Exam Vital signs and Labs for Last 24 Hours: Temp Pulse Resp BP Pulse Ox 98.0 F 78 17 109/61 L 98 03/16/20 07:59 03/16/20 07:59 03/16/20 07:59 03/16/20 07:59 03/16/20 07:59 Laboratory Results - last 24 hr 03/16/20 06:15: Sodium 132 L, Potassium 2.9 L*, Chloride 94 L, Carbon Dioxide 33 H, Anion Gap 7.9, BUN 10 D, Creatinine 0.50 L, Estimated Creat Clear 36, Estimated GFR 163, Est GFR ( Amer) 197, Glucose 69 L D, Calcium 8.4 I & O for Last 24 hours: Intake & Output 03/13/20 03/14/20 03/15/20 03/16/20 11:59 11:59 11:59 11:59 Intake Total 1480 / 1480 1200 / 1200 360 / 360 Output Total 400 / 400 750 / 750 575 / 575 Balance 1080 / 1080 450 / 450 -215 / -215 Weight 83 lb 1 oz 85 lb 4 oz 86 lb 9.6 oz Narrative: Alert. Oriented x2. Remains cachectic but seems better hydrated. Vague swelling of right side of face and submandibular area noted, dysarthria is unchanged. Lungs have good air movement. Heart rate regular. Abdomen scaphoid but soft. No neurologic deficits. Assessment and Plan (1) Acute UTI Status: Acute Category: Medical Code(s): N39.0 - Urinary tract infection, site not specified (2) Failure to thrive Status: Acute Qualifiers: Failure to thrive age range: in adult Qualified Code(s): R62.7 - Adult failure to thrive Category: Medical (3) Hyponatremia Status: Acute Category: Medical Code(s): E87.1 - Hypo-osmolality and hyponatremia (4) Syncope Status: Acute Qualifiers: Syncope type: unspecified Qualified Code(s): R55 - Syncope and collapse Category: Medical Code(s): R55 - Syncope and collapse (5) Severe protein-calorie malnutrition Status: Acute Category: Medical Code(s): E43 - Unspecified severe protein-calorie malnutrition (6) Hypomagnesemia Status: Acute Category: Medical Code(s): E83.42 - Hypomagnesemia (7) Hypokalemia Status: Acute Category: Medical Code(s): E87.6 - Hypokalemia (8) Mass of right side of neck Status: Acute Category: Medical Code(s): R22.1 - Localized swelling, mass and lump, neck (9) Dysarthria Status: Acute Category: Medical Code(s): R47.1 - Dysarthria and anarthria (10) NSTEMI (non-ST elevated myocardial infarction) Status: Acute Category: Medical Code(s): I21.4 - Non-ST elevation (NSTEMI) myocardial infarction - Assessment and plan all Dx Assessment and Plan for all problems:: UTI symptoms abated. Unfortunately culture was not sent from the ER even though nitrates were positive. I will investigate why this was the case. Finish up course of antibiotics as empirically he seems better. Acute kidney injury improving. Hypokalemia still a concern this morning, increased dose of p.o. potassium. Care management consult tomorrow for long-term care placement versus hospice once we review cancer records.
--- NOTE | 2020-03-16 08:30 | PC.NURSE ---
verbal order for urine culture given per Dr. Thompson, states he wants the culture set up on the urine specimen that is already in the lab. Notified french in the lab.
--- NOTE | 2020-03-16 10:45 | PC.NURSE ---
2*2 skin tear to right upper arm skin tear to left forearm skin tear to posterior upper right arm skin tear to right arm
--- NOTE | 2020-03-16 14:25 | PC.NURSE ---
HE IS ALERT AND ORIENTED*3, ABLE TO ANSWER QUESTIONS AND FOLLOW COMMANDS, HIS SPEECH IS GARBLED AT TIMES AND HE HAS DIFFICULTY HEARING, HE HAS TOLERATED RA WELL WITH NO C/O SOA, HE IS ABLE TO SWALLOW MEDICATIONS AND TOLERATES HIS DIET WELL, NO C/O N/V/D NOTE, LUNGS ARE DIMINISHED BILATERALLY, ABD IS SOFT AND NON-TENDER, PT USES THE URINAL AT BEDSIDE, PT HAS MULTIPLE SKIN ISSUES(SEE PREVIOUS NOTE) AND SCATTERED BRUISING TO BUE, VSS, NO NEEDS AT THIS TIME
[2020-03-16 15:23] VITALS: BP 113/57; PULSE 72; RESP 17; TEMP 36.8; O2SAT 96
--- NOTE | 2020-03-16 15:23 | PC.NURSE ---
PER MD BERG PT DOES NOT NEED AN IV
[2020-03-16 20:00] VITALS: BP 131/56; PULSE 66; RESP 18; TEMP 36.6; O2SAT 96
--- NOTE | 2020-03-16 21:32 | PC.NURSE ---
Pt refused all HS meds this shift. States get the hell out and let me sleep . Pt also refused for this RN to complete a full head to toe assessment at this time Refused to state name or birthday. States my name is michane ask me again and I'll tell you to f off . Bilateral lungs noted diminished t/o. No edema noted. Refused hand gripping and PERRLA assessment.
[2020-03-17 04:00] VITALS: BP 90/53; PULSE 80; RESP 16; TEMP 36.8; O2SAT 96
[2020-03-17 05:00] VITALS: BMI 13.1
--- NOTE | 2020-03-17 06:21 | PC.NURSE ---
Pt rested well with eyes closed and no new complaints this shift. Tolerated RA well with no SOA. Bilateral lungs noted clear t/o. No edema noted. Pt noted frail. Refused Q2H turns. Refused TEDS. VSS. Remains safe. Call light within reach. Will continue to monitor. Bed alarm on and functioning.
[2020-03-17 07:02] LABS: Chloride 95 mmol/L (98-107); Sodium 131 mmol/L (136-145)
[2020-03-17 07:05] LABS: Blood Urea Nitrogen 11 mg/dl (9-20); Carbon Dioxide 34 mmol/L (22.0-30.0); Creatinine Clearance Estimated 34 mL/min (50-200); Estimated Glomerular Filt Rate 132 ml/min (>60); GFR (African American) 159 ML/MIN (>60)
[2020-03-17 07:06] LABS: Calcium 8.5 mg/dl (8.4-10.2); Glucose 68 mg/dl (74-100)
[2020-03-17 07:29] LABS: Basophils % 1.1 % (0.1-2.0); Eosinophils % 0.9 % (0.1-12.0); Hematocrit 29.3 % (42.0-52.0); Hemoglobin 10.4 g/dL (14.1-18.0); Lymphocytes # 0.5 K/mm3 (0.7-4.5); Mean Corpuscular HGB Conc 35.6 g/dL (31.8-35.4); Mean Corpuscular Hemoglobin 33.3 pg (27.0-31.2); Mean Corpuscular Volume 93.6 fl (80-94); Monocytes # 0.2 K/mm3 (0.1-1.0); Neutrophils % 74.1 % (37.0-80.0); Platelet Count 135 K/mm3 (142-424); Red Blood Count 3.13 M/mm3 (4.60-6.20); Red Cell Distribution Width 14.4 % (11.5-17.5); White Blood Count 2.6 K/mm3 (4.8-10.8)
[2020-03-17 08:00] VITALS: BP 116/59; PULSE 76; RESP 20; TEMP 36.8; O2SAT 98
--- NOTE | 2020-03-17 08:12 | SW/DCPLANNER ---
Addendum entered by Juliann Cortes 03/18/20 15:00: SET UP HOME HEALTH FOR THIS PATIENT STATUS POST DISCHARGE YESTERDAY... DAUGHTER WAS GOING TO TRY AND GET SOME SERVICES THROUGH [place] BUT DID NOT HAVE ANY SUCCESS...I SET HIS HOME HEALTH UP WITH [facility] SINCE THEY SERVICE [place]... SERVICES TO START ON TUE OR ... Addendum entered by Juliann Cortes 03/17/20 09:30: PATIENT IS DISCHARGING HOME TODAY AND [facility]... HE IS TO FOLLOW UP WITH DR BERNSTEIN IN [place] AND ALSO HIS ONCOLOGISTS AT NEXT WEEK.. I TOLD HER IF SHE DOESN[facility]T GET [facility]WHERE [facility] TO CALL [facility] AND I WILL SET HIS HOME HEALTH UP FROM HERE... WILL FOLLOW UP [facility]... Original Note: MADE ROUNDS WITH DR BERG THIS MORNING: WORKING ON A DISCHARGE PLAN FOR THIS PATIENT, ACCORDING TO PATIENT HE STATED FAMILY WAS IN YESTERDAY AND WILL BE BACK TODAY.. HE IS WANTING TO GO HOME AND SAID HE HAS HOME HEALTH SERVICES... I WILL ATTEMPT TO GET A HOLD OF THE DAUGHTER IF I CAN GET A NUMBER TO SEE IF HE CAN RETURN HOME OR IF PLACEMENT IS NECESSARY...
--- NOTE | 2020-03-17 08:21 | HMH.DCSUM ---
General - General Admission date:: 03/15/20 Discharge date: 03/17/20 HPI HPI: This is a 74-year-old male with no significant past medical history who presents to the emergency department for an episode of syncope at the grocery store today. Patient was giving the money to the hims clerk when he fell into the plastic shield. Patient is hard of hearing so report is primarily from EMS and the grocery store where he shops. They state he is in there frequently and they have noticed a general decline over the last several years. Patient does not go to the doctor and takes no medications regularly. Fingerstick was in the 120s. Patient denies any associated chest pain, shortness of breath or recent illnesses. He did fill a narcotic medication on February 062019. He states that he just got lightheaded earlier today. Asymptomatic currently. No pain. Above note per emergency department Significant electrolyte disturbances, significant weakness noted in the ER, admitted for social work, PT/OT evaluation and IV hydration. 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 When I discussed this with the patient he notes that he has a diagnosis of cancer and has been worked up by his regular physician and with ENT at [place]. He is unable to report further details. Patient's acute kidney injury and potassium deficiencies were corrected with IV fluids and potassium replacement respectively. UTI was treated with Omnicef. Patient passed PT evaluation and wished to go home, did not wish to consider any kind of skilled care placement. We have try to get records on his cancer diagnosis but have been unable to over the weekend. Given patient's symptomatic improvement and his electrolyte stability and his better p.o. intake plan will be as follows: We will arrange follow-up with Dr. Lazo this week. Of note I have recommended the patient stop naproxen given his acute kidney injury, Tylenol for pain and discomfort. Also recommend starting low-dose carvedilol and aspirin for his probable vascular disease and hypertension. He will be discharged in the care of his family to go home and we will initiate home health referral for nursing care, PT/OT evaluation and labs in 1 week from today which will need to be BMP and CBC. Please note that I have performed a [id number] evaluation with the patient today, he cannot leave home without significant difficulty and he is eligible for home health for the above problems. Objective Vital signs: Temp Pulse Resp BP Pulse Ox 98.2 F 80 16 90/53 L 96 03/17/20 04:00 03/17/20 04:00 03/17/20 04:00 03/17/20 04:00 03/17/20 04:00 Narrative: Exam limited by his hard of hearing status no acute distress - *Routine HEENT Exam Head: Present: facial swelling (Facial swelling in the right lower jawline, mild right facial drooping) Eye: Present: EOMI, PERRL ENT: Present: mucous membranes moist - *Routine Neck Exam Present: supple, lymphadenopathy (Right mandibular area) - *Routine Respiratory Exam Present: CTA bilaterally - *Routine Cardiovascular Exam Present: RRR - *Routine Abdominal Exam Present: soft, normoactive bowel sounds. Absent: tenderness - *Routine Extremities Exam Absent: cyanosis, clubbing, edema - *Routine Skin Exam Present: warm. Absent: rash - Detailed Eye Exam Eyelids: Bilateral normal inspection Results Labs on day of discharge: Labs from last 24 hours 03/17/20 03/17/20 06:45 06:45 WBC 2.6 L RBC 3.13 L Hgb 10.4 L Hct 29.3 L MCV 93.6 MCH 33.3 H MCHC 35.6 H RDW 14.4 Plt Count 135 L MPV 8.0 Neut % (Auto) 74.1 Lymph % (Auto) 17.0 [place] % (Auto) 7.0 Eos % (Auto) 0.9 Baso % (Auto) 1.1 Neut # (Auto) 2.0 Lymph # (Auto) 0.5 L [place] #
--- NOTE | 2020-03-18 09:57 | CARE MANAGER ---
Contacted the notification center at [facility] to follow up nutrition consultant from last week. They state since our NPI shows as out of network it gets sent to a different team. There is no approval number it had to be reviewed. Stated there was no way for me to follow up on this that we would be notified if clinicals were needed or they had additional questions. Spoke with Laverne Wiley regarding NPI. MARIANNE Toledo, BSN, B[employer] Forming Machine Operator
== END 2020-03-17 09:41 | disposition home health service (06) | DRG 689 ==
LOC: ER 16:35 → 2ND 16:50
PROVIDERS: Internal Medicine Adolescent Medicine; Admitting Provider Internal Medicine Adolescent Medicine; Emergency Provider Emergency Medicine; Visit Provider Internal Medicine Adolescent Medicine
DX: N39.0 Urinary tract infection, site not specified (principal); E43 Unspecified severe protein-calorie malnutrition; E87.1 Hypo-osmolality and hyponatremia; Z68.1 Body mass index [BMI] 19.9 or less, adult; Z72.0 Tobacco use; R62.7 Adult failure to thrive; R55 Syncope and collapse; R22.1 Localized swelling, mass and lump, neck
CPT/HCPCS: 36415; 70450; 70492; 71046; 74177; 80048; 80053; 80305; 81001; 83735; 84100; 84484; 85007; 85025; 86328; 87086; 92610; 93005; 96365; 96367; 97162; 97165; 97530; 99284; G0378; Q9967

== ENCOUNTER 2020-04-03 15:56 | Emergency (ER) | payer MEDICARE, OTHER, SELFPAY ==
[2020-04-03] VITALS (7 sets, daily range): BP systolic 103–156; BP diastolic 46–77; PULSE 62–95; RESP 16–20; TEMP 36.3–36.6; O2SAT 86–99; BMI 12.0
--- NOTE | 2020-04-03 16:26 | HMH.EDGENADL ---
ED Disposition Clinical Impression: Cachexia, Multiple falls, Oral cancer, Generalized weakness Disposition: Home, Self-Care Condition on Discharge: Fair Instructions: How to Prevent Falls, DI for Muscle Weakness Additional Instructions: Call your primary care provider tomorrow to arrange follow-up. Referrals: Maxx Lazo [Primary Care Provider] - - Critical Care Critical Care Time: No Attestation: On 04/03/20, the high probability of a clinically significant, sudden or life threatening deterioration of the following system(s) required my full and direct attention, intervention and personal management. The time I documented below is in addition to time spent performing reported procedures but includes the following listed in this critical care notation. Medical Decision Making - Medical Records Medical records reviewed: Yes: I reviewed the patient's medical records. MR Deb: Admitted here 03/15/2020 for failure to thrive, hyponatremia, hypokalemia, possible urinary tract infection (nitrate positive, culture eventually negative). Patient declined extended care facility placement. - Patric Inquiry Pt receiving controlled substance: No Vital Signs: 04/03/20 15:58 04/03/20 16:56 04/03/20 17:00 Temperature 97.4 F L Temperature Source Rectal Pulse Rate Pulse Rate [Radial] 75 95 H Respiratory Rate 20 16 Blood Pressure Blood Pressure [Right Arm] 103/46 L 114/60 Blood Pressure Mean [Right Arm] 65 78 Blood Pressure Source Blood Pressure Source [Right Arm] Automatic Cuff Blood Pressure Position Blood Pressure Position [Right Arm] Sitting Sitting 02 Sat by Pulse Oximetry 99 86 L Oxygen Delivery Method Room Air Room Air 04/03/20 18:00 04/03/20 18:30 04/03/20 19:00 Temperature Temperature Source Pulse Rate Pulse Rate [Radial] 78 66 62 Respiratory Rate 17 17 17 Blood Pressure Blood Pressure [Right Arm] 121/77 145/50 H 156/61 H Blood Pressure Mean [Right Arm] 91 81 92 Blood Pressure Source Blood Pressure Source [Right Arm] Automatic Cuff Automatic Cuff Automatic Cuff Blood Pressure Position Blood Pressure Position [Right Arm] Supine Supine Supine 02 Sat by Pulse Oximetry 95 95 95 Oxygen Delivery Method Room Air Room Air Room Air 04/03/20 19:35 04/03/20 19:37 Temperature 97.8 F Temperature Source Oral Pulse Rate 68 Pulse Rate [Radial] Respiratory Rate 20 Blood Pressure 142/60 H Blood Pressure [Right Arm] Blood Pressure Mean [Right Arm] Blood Pressure Source Automatic Cuff Blood Pressure Source [Right Arm] Blood Pressure Position Sitting Blood Pressure Position [Right Arm] 02 Sat by Pulse Oximetry Oxygen Delivery Method Room Air Room Air - Lab Data Lab results reviewed: Yes: I reviewed the patient's lab results. Lab Results 04/03/20 16:30: WBC 7.0, RBC 3.49 L, Hgb 11.6 L, Hct 33.1 L, MCV 94.7 H, MCH 33.3 H, MCHC 35.1, RDW 15.9, Plt Count 173, MPV 7.4, Neut % (Auto) 87.2 H, Lymph % (Auto) 7.2 L, Hunt % (Auto) 4.1, Eos % (Auto) 1.4, Baso % (Auto) 0.2, Neut # (Auto) 6.1, Lymph # (Auto) 0.5 L, Hunt # (Auto) 0.3, Eos # (Auto) 0.1, Baso # (Auto) 0.0, Total Counted 100, Neutrophils % (Manual) 89 H, Lymphocytes % (Manual) 9 L, Monocytes % (Manual) 2, Platelet Estimate Normal, RBC Morphology Normal 04/03/20 16:30: Sodium 131 L, Potassium 3.2 L, Chloride 93 L, Carbon Dioxide 32 H, Anion Gap 9.2, BUN 11, Creatinine 0.70, Estimated Creat Clear 32, Estimated GFR 110, Est GFR ( Amer) 133, Glucose 108 H, Calcium 8.9, Total Bilirubin 1.5 H, AST 40, ALT 19, Alkaline Phosphatase 90, Troponin I < 0.01, Total Protein 7.0, Albumin 3.6, Globulin 3.4 H, Albumin/Globulin Ratio 1.1 04/03/20 16:30: Magnesium 1.9 04/03/20 16:50: SARS-CoV-2 IgG Ab (Rapid) Negative, SARS-CoV-2 IgM Ab (Rapid) Negative 04/03/20 16:50: Lactate 1.5 04/03/20 18:15: Urine Color Yellow, Urine Appearance Slightly cloudy, Urine pH 7.0, Ur Specific [place] 1.015, Urine Protein Negative, Ur
--- NOTE | 2020-04-03 16:28 | XR_ITS ---
PROCEDURE: XR CHEST PORTABLE CLINICAL HISTORY: fall Pain following injury COMPARISON: CR XR CHEST 2V from 03/13/2020 FINDINGS: The cardiomediastinal silhouette and pulmonary vascularity are within normal limits. Changes of COPD and old granulomatous disease. There is increased density in the left apex which is felt to be due to soft tissue attenuation and radiographic technique. Triangular-shaped opacity is present in left midlung laterally and may be due to artifact.. No lobar consolidation or collapse No acute bony abnormalities. IMPRESSION: No acute findings. Dictated by: Leon Gutiérrez MD 04/03/2020 19:09 Leon Gutiérrez MD in [facility] 04/03/2020 19:09
[2020-04-03 16:41] LABS: Basophils % 0.2 % (0.1-2.0); Eosinophils # 0.1 K/mm3 (0.0-0.4); Eosinophils % 1.4 % (0.1-12.0); Hematocrit 33.1 % (42.0-52.0); Hemoglobin 11.6 g/dL (14.1-18.0); Lymphocytes # 0.5 K/mm3 (0.7-4.5); Lymphocytes % 7.2 % (10-50); Mean Corpuscular HGB Conc 35.1 g/dL (31.8-35.4); Mean Corpuscular Hemoglobin 33.3 pg (27.0-31.2); Mean Corpuscular Volume 94.7 fl (80-94); Mean Platelet Volume 7.4 fl (7.4-10.4); Monocytes # 0.3 K/mm3 (0.1-1.0); Monocytes % 4.1 % (1.7-9.3); Neutrophils # 6.1 K/mm3 (1.8-7.8); Neutrophils % 87.2 % (37.0-80.0); Platelet Count 173 K/mm3 (142-424); Red Blood Count 3.49 M/mm3 (4.60-6.20); Red Cell Distribution Width 15.9 % (11.5-17.5)
[2020-04-03 16:42] LABS: MANUAL DIFFERENTIAL MANUAL DIFFERENTIAL (MANUAL DIFF)
--- NOTE | 2020-04-03 16:54 | CT_ITS ---
PROCEDURE: CT HEAD/BRAIN WO CON CLINICAL INDICATION: head injury Head injury with headache/pain, contusion, abrasion or hematoma COMPARISON: CT CT HEAD/BRAIN WO CON from 03/13/2020 TECHNIQUE: Axial images obtained. All CT scans at the facility use one or more dose reduction, viz: automated exposure control, ma/kV adjustment per patient size (including targeted exams where dose is matched to indication, i.e. head), or iterative reconstruction technique. FINDINGS: No midline shift, mass effect, intracranial hemorrhage, hydrocephalus, or extra-axial fluid collection is evident. There is generalized atrophy with hypoattenuation of the periventricular white matter consistent with microangiopathic changes. The calvarium has an unremarkable appearance. No mastoid effusion. There is mild mucosal thickening of the ethmoid sinuses. IMPRESSION: No acute intracranial finding Dictated by: Leon Gutiérrez MD 04/03/2020 19:12 Leon Gutiérrez MD in [facility] 04/03/2020 19:12
[2020-04-03 16:57] LABS: Lymphocytes % 9 % (10-50); Monocytes % 2 % (2-9); Neutrophils % 89 % (42-76); Platelet Estimate Normal; RBC Morphology Normal; Total Cells Counted 100
[2020-04-03 16:58] LABS: Chloride 93 mmol/L (98-107); Potassium 3.2 mmoL/L (3.5-5.1); Sodium 131 mmol/L (136-145)
[2020-04-03 17:00] LABS: Alanine Aminotransferase 19 U/L (12-78); Aspartate Amino Transferase 40 U/L (17-59); Blood Urea Nitrogen 11 mg/dl (9-20); Creatinine Clearance Estimated 32 mL/min (50-200); Estimated Glomerular Filt Rate 110 ml/min (>60); GFR (African American) 133 ML/MIN (>60); Magnesium 1.9 mg/dl (1.6-2.3)
[2020-04-03 17:01] LABS: Albumin Level 3.6 g/dl (3.5-5.0); Albumin/Globulin Ratio 1.1 (1.1-1.8); Alkaline Phosphatase 90 U/L (38-126); Anion Gap 9.2 mEq/L (5-15); Bilirubin,Total 1.5 mg/dl (0.2-1.3); Calcium 8.9 mg/dl (8.4-10.2); Carbon Dioxide 32 mmol/L (22.0-30.0); Globulin 3.4 g/dL (1.3-3.2); Glucose 108 mg/dl (74-100)
[2020-04-03 17:09] LABS: Lactic Acid 1.5 mmol/L (0.7-2.1)
[2020-04-03 17:16] LABS: Troponin I < 0.01 ng/ml (0.00-0.034)
--- NOTE | 2020-04-03 17:39 | PC.NURSE ---
pt return from radiology
--- NOTE | 2020-04-03 17:50 | ECG_ITS ---
APPROVED REPORT Exam: Resting ECG HR:64 bpm ECG Measurements Heart Rate 64 AXES UT 174 P 90 QRSd 92 QRS 78 QT 466 T 39 QTc 480 Conclusion Sinus rhythm with frequent premature ventricular complexes Septal infarct, age undetermined Abnormal ECG Electronically signed by : Rad Thompson, 04/07/2020 07:32:23
[2020-04-03 17:54] LABS: Coronavirus 19 IgG Antibody Negative (Negative); Coronavirus 19 IgM Antibody Negative (Negative)
[2020-04-03 18:19] LABS: Microscopic, Urine URINE MICROSCOPIC (MICROSCOPIC)
[2020-04-03 18:25] LABS: Blood, Urine Negative (Negative); Color,Urine YELLOW (Yellow); Glucose,Urine (UA) Negative (Negative); Ketones,Urine Negative (Negative); Leukocyte Esterase,Urine Negative (Negative); Nitrate,Urine Negative (Negative); Protein,Urine Negative (Negative); Specific Gravity, Urine 1.015 (1.005-1.030)
[2020-04-03 18:27] LABS: Appearance,Urine Slightly Cloudy (Clear); Bilirubin,Urine Negative (Negative)
[2020-04-03 18:42] LABS: Bacteria,Urine Trace /lpf; WBC,Urine Occasional #/hpf (0-3)
== END 2020-04-03 19:45 | disposition home or self-care (01) ==
PROVIDERS: Emergency Provider Emergency Medicine; PCP Family Medicine
DX: R64 Cachexia (principal); T07.XXXA Unspecified multiple injuries, initial encounter; C06.9 Malignant neoplasm of mouth, unspecified; W18.30XA Fall on same level, unspecified, initial encounter; Y92.009 Unspecified place in unspecified non-institutional (private) residence as the place of occurrence of the external cause; F17.210 Nicotine dependence, cigarettes, uncomplicated; Z01.84 Encounter for antibody response examination
CPT/HCPCS: 70450; 71045; 80053; 81001; 83605; 83735; 84484; 85007; 85025; 86328; 87040; 93005; 96365; 96375; 99284; J2405